=== PATIENT | male | born 1950 | race Caucasian/White ===

== ENCOUNTER 2021-05-20 09:46 | Outpatient (CLI) | payer MEDICARE, SELFPAY | END 2021-05-20 09:47 | disposition home or self-care (01) | LOC: ANHLAB 09:51 | PROVIDERS: PCP Internal Medicine; Visit Provider Clinical Nurse Specialist | DX: J02.9 Acute pharyngitis, unspecified (principal) | CPT/HCPCS: 87081; 87880 ==